=== PATIENT | male | born 1955 | race Caucasian/White ===

== ENCOUNTER 2019-11-01 23:24 | Emergency (ER) | payer OTHER ==
[2019-11-02] MEDS ORDERED: CEPHALEXIN 500 MG CAPSULE PO ONE (01:38)
[2019-11-02] MEDS ORDERED: SULFAMETHOXAZOLE/TRIMETHOPRIM 800-160 MG TABLET PO ONE (01:38)
--- NOTE | 2019-11-02 01:42 | ER Document Report ---
ED Medical Screen (RME) - General Chief Complaint: Skin Problem Stated Complaint: INFECTION ON FACE Time Seen by Provider: 11/02/19 01:37 Primary Care Provider: LUCILLE MCKEON MD [Primary Care Provider] - Follow up as needed Notes: 63-year-old male with a history of type 2 diabetes with chief complaint of facial erythema, swelling, and developing borderline fever today. Symptoms started this morning. He states that he recently was seen at [place] and started on antibiotics, he has completed these at home for the same thing. He states he declined admission at that time. He denies any particular pain. He denies any other complaints. Physical Exam - Vital signs Vitals: Temp Pulse Resp BP Pulse Ox 100.3 F 105 H 17 180/74 H 96 11/01/19 23:48 11/01/19 23:48 11/01/19 23:48 11/01/19 23:48 11/01/19 23:48 - Skin Irregularity with: Other - There is soft tissue swelling of the left upper lip, swelling of the left cheek, erythema and warmth of the left and right cheeks extending to the nose and upper lip as well as extending to what appears to be the left inside of the nose Course - Re-evaluation Re-evalutation: Patient with borderline tachycardia, temperature of 100.3, history of diabetes, and obvious facial cellulitis which has appearance of erysipelas but in addition to this patient has facial swelling raising concern for possible abscess. Work- up pending. Because there is a delay in getting her rooms and getting an IV he was given p.o. antibiotics now. I have greeted and performed a rapid initial assessment of this patient. A comprehensive ED assessment and evaluation of the patient, analysis of test results and completion of the medical decision making process will be conducted by additional ED providers. - Vital Signs Vital signs: Temp Pulse Resp BP Pulse Ox 100.3 F 105 H 17 180/74 H 96 11/01/19 23:48 11/01/19 23:48 11/01/19 23:48 11/01/19 23:48 11/01/19 23:48 Doctor's Discharge - Discharge Referrals: LUCILLE MCKEON MD [Primary Care Provider] - Follow up as needed
[2019-11-02 02:59] LABS: ABSOLUTE EOSINOPHILS # (AUTO) 0.2 10^3/uL (0.0-0.6); ABSOLUTE LYMPHOCYTES (AUTO) 0.9 10^3/uL (0.5-4.7); ABSOLUTE MONOCYTES (AUTO) 0.6 10^3/uL (0.1-1.4); ABSOLUTE NEUT (AUTO) 7.7 10^3/uL (1.7-8.2); BASOPHILS % (AUTO) 0.4 % (0-2); EOSINOPHILS % (AUTO) 2.6 % (0-6); HEMATOCRIT 39.8 % (37.9-51.0); HEMOGLOBIN 13.7 g/dL (13.5-17.0); MEAN CORPUSCULAR HEMOGLOBIN 31.1 pg (27.0-33.4); MEAN CORPUSCULAR HGB CONC 34.5 g/dL (32.0-36.0); MEAN CORPUSCULAR VOLUME 90 fl (80-97); MONOCYTES % (AUTO) 6.7 % (3-13); PLATELET COUNT 178 10^3/uL (150-450); RED BLOOD COUNT 4.41 10^6/uL (4.35-5.55); RED CELL DISTRIBUTION WIDTH 13.4 % (11.5-14.0); SEGMENTED NEUTROPHILS % (AUTO) 81.3 % (42-78); TOTAL CELLS COUNTED % (AUTO) 100 %; WHITE BLOOD COUNT 9.4 10^3/uL (4.0-10.5)
[2019-11-02 03:08] LABS: VENOUS BLOOD BASE EXCESS -3.1 mmol/L; VENOUS BLOOD PH 7.4 (7.30-7.42)
[2019-11-02 03:21] LABS: ALBUMIN 4.5 g/dL (3.5-5.0); ALKALINE PHOSPHATASE 84 U/L (38-126); ANION GAP 10 (5-19); ASPARTATE AMINO TRANSFERASE 21 U/L (17-59); BILIRUBIN,TOTAL 0.6 mg/dL (0.2-1.3); BLOOD UREA NITROGEN 23 mg/dL (7-20); CALCIUM 9.3 mg/dL (8.4-10.2); CARBON DIOXIDE 22 mmol/L (22-30); CHLORIDE 105 mmol/L (98-107); GLUCOSE 134 mg/dL (75-110); POTASSIUM 4.2 mmol/L (3.6-5.0); TOTAL PROTEIN 7.3 g/dL (6.3-8.2)
[2019-11-02 03:22] LABS: INTERNATIONAL RATION (INR) 0.97; PROTHROMBIN TIME 13.1 SEC (11.4-15.4)
--- NOTE | 2019-11-02 03:50 | ER Document Report ---
ED General - General Chief Complaint: Skin Problem Stated Complaint: INFECTION ON FACE Time Seen by Provider: 11/02/19 01:37 Primary Care Provider: ABEBE INMAN MD [Primary Care Provider] - Follow up as needed Notes: 63-year-old male with a history of type 2 diabetes with chief complaint of facial erythema, swelling, and developing borderline fever today. Symptoms started this morning. He states that he recently was seen at [place] and started on antibiotics, he has completed these at home for the same thing. He states he declined admission at that time. He denies any particular pain. He denies any other complaints. - Related Data Allergies/Adverse Reactions: No Known Allergies Allergy (Unverified 11/02/19 02:27) Past Medical History - General Information source: Patient - Social History Smoking Status: Never Smoker Drug Abuse: None Lives with: Family Family History: Reviewed & Not Pertinent Patient has homicidal ideation: No Endocrine Medical History: Reports: Hx Diabetes Mellitus Type 2 - Immunizations Hx Diphtheria, Pertussis, Tetanus Vaccination: Yes Review of Systems - Review of Systems Constitutional: No symptoms reported EENT: See HPI Cardiovascular: No symptoms reported Respiratory: No symptoms reported Gastrointestinal: No symptoms reported Genitourinary: No symptoms reported Male Genitourinary: No symptoms reported Musculoskeletal: No symptoms reported Skin: See HPI Hematologic/Lymphatic: No symptoms reported Neurological/Psychological: No symptoms reported Physical Exam - Vital signs Vitals: Temp Pulse Resp BP Pulse Ox 100.3 F 105 H 17 180/74 H 96 11/01/19 23:48 11/01/19 23:48 11/01/19 23:48 11/01/19 23:48 11/01/19 23:48 - Notes Notes: GENERAL: Alert, interacts well. No acute distress. HEAD: Normocephalic, atraumatic. EYES: Pupils equal, round, and reactive to light. Extraocular movements intact. ENT: Oral mucosa moist, tongue midline. Oropharynx unremarkable. Airway patent. There is erythema and swelling that extends from the left nasal passage down to the left upper lip and then over to the face with swelling on the left cheek, there is also erythema to the right zygomatic area. There is no head, there is no induration or fluctuance, there is no blistering. NECK: Full range of motion. Supple. Trachea midline. No lymphadenopathy. LUNGS: Clear to auscultation bilaterally, no wheezes, rales, or rhonchi. No respiratory distress. Non-tender chest wall. HEART: Regular rate and rhythm. No murmur ABDOMEN: Soft, non-tender. Non-distended. EXTREMITIES: Moves all 4 extremities spontaneously. No edema, normal radial and dorsalis pedis pulses bilaterally. No cyanosis. BACK: no cervical, thoracic, lumbar midline tenderness. No saddle anesthesia, normal distal neurovascular exam. Moves all extremities in full range of motion. NEUROLOGICAL: Alert and oriented x3. Normal speech. Cranial nerves II through XII grossly intact. Strength 5/5 in all extremities. PSYCH: Normal affect, normal mood. SKIN: Warm, dry, normal turgor. No rashes or lesions noted. Course - Re-evaluation Re-evalutation: Patient has significant cellulitis of the face with soft tissue swelling of the left upper lip, nose, and face at the zygomatic area concerning for even developing abscess. CT of the face was performed with contrast and shows cellulitis but no abscess. Work-up is reassuring with unremarkable CBC, chemistry, lactic acid. Blood cultures are pending. However because patient is diabetic, has a significant cellulitis of the face, and recently had the same cellulitis with recurrence, I strongly recommended the patient be admitted to the hospital. Patient was very firm about stating that he would not be admitted to the hospital. Patient also had a temperature of 100.3. I discussed how with this significant infection he could develop an abscess, sepsis, and even . Patient again states that he will try oral antibiotics and he will come back if he worsens. is supportive of the patient. Patient states he would like to sign out AGAINST MEDICAL ADVICE and he will return if he worsens. Patient clearly has capacity, I discussed this at length, patient cannot be dissuaded. Patient did sign out AGAINST MEDICAL ADVICE. - Vital Signs Vital signs: Temp Pulse Resp BP Pulse Ox 100.3 F 105 H 17 139/80 H 95 11/01/19 23:48 11/01/19 23:48 11/02/19 04:17 11/02/19 04:17 11/02/19 04:17 - Laboratory Result Diagrams: 11/02/19 02:37 11/02/19 02:37 Laboratory results interpreted by me: 11/02/19 11/02/19 02:37 02:37 Lymph % (Auto) 9.0 L Seg Neutrophils % 81.3 H Sodium 136.6 L BUN 23 H Glucose 134 H Discharge - Discharge Clinical Impression: Facial cellulitis Condition: Stable Disposition: AGAINST MEDICAL ADVICE Additional Instructions: You have a significant skin infection to your face. You have signed out AGAINST MEDICAL ADVICE. There is a possibility that this infection becomes very severe or even life-threatening. You have been provided antibiotics but the recommendation is to return immediately or seek care elsewhere immediately. Prescriptions: Sulfamethoxazole/Trimethoprim [Bactrim Ds Tablet] 2 each PO BID #28 tablet Cephalexin Monohydrate [Keflex 500 mg Capsule] 500 mg PO QID #28 capsule
--- NOTE | 2019-11-02 05:54 | RADIOLOGY REPORT (SQ) ---
CT face with contrast on 11/02/2019 at 4:28 AM CLINICAL INDICATION: Facial swelling, cellulitis versus abscess TECHNIQUE: Multiple axial images are obtained throughout the face following the administration of IV contrast. 74 mL of Omnipaque 350 contrast was administered intravenously. Sagittal and coronal reformatted images are also performed and reviewed. This exam was performed according to our departmental dose-optimization program, which includes automated exposure control, adjustment of the mA and/or kV according to patient size and/or use of iterative reconstruction technique. Total DLP is 619.34 mGy*cm. COMPARISON: 10/07/2019 FINDINGS: There remains partial opacification of the right maxillary sinus. There is mild mucosal thickening in the bilateral ethmoid and sphenoid sinuses and right frontal sinus consistent with changes of chronic sinusitis. The bilateral mastoid air cells and middle ear cavities are clear. There is nasal septal deviation to the right. There is soft tissue thickening with subcutaneous fat stranding within the upper lip soft tissues extending along the region of the nasal spine consistent with cellulitis. This is greatest on the left. No fluid collection to suggest abscess is noted. No periapical lucency to suggest periapical abscess is noted. There are no acute fracture lines. No other bony or soft tissue abnormality is noted. IMPRESSION: Soft tissue swelling in the upper lip soft tissues consistent with cellulitis with no fluid collection to suggest abscess.
[2019-11-02 06:04] VITALS: BP 139/80
--- NOTE | 2019-11-02 08:00 | EKG REPORT ---
SEVERITY:- NORMAL ECG - SINUS RHYTHM : Confirmed by: Huong Dunn 02-Nov-2019 07:59:01
== END 2019-11-02 06:08 | disposition left against medical advice (07) ==
LOC: ER 23:24
DX: L03.211 Cellulitis of face (principal); E11.9 Type 2 diabetes mellitus without complications; Z53.20 Procedure and treatment not carried out because of patient's decision for unspecified reasons
CPT/HCPCS: 36415; 70487; 80053; 82803; 83605; 85025; 85610; 87040; 93005; 93010; 99285